=== PATIENT | male | born 1935 | race Caucasian/White ===

== ENCOUNTER 2016-12-01 10:40 | Emergency (ER) | payer SELFPAY ==
[~2016-12-01 10:40] MED LIST: ALPRAZOLAM0.5 MG PO; ASPIRIN CHEWABL81 MG PO; CHOLESTYRAMINE P4 GM PO; DILTIAZEM ER180 M1 PO; LASIX 40 MG TAB40 MG PO; LEVAQUIN500 MG PO; LOPRESSOR 25 MG25 MG PO; METOPROLOL TART25 MG PO; NORCO 5-325 TA1 EACH PO; OMEPRAZOLE40 MG PO; ZESTRIL5 MG PO
[2016-12-01 12:11] LABS: HEMOGLOBIN 13.3 gm/dl (14.0-17.5); RED BLOOD COUNT 4.5 M/UL (4.20-5.50); WHITE BLOOD COUNT 6.9 K/UL (4.5-11.0)
[2016-12-01 12:47] LABS: BUN/CREATININE RATIO 15 (0-10)
== END 2016-12-01 14:25 | disposition home or self-care (01) ==
LOC: ER1 10:40
PROVIDERS: Specialist/Technologist Athletic Trainer
DX: R60.1 Generalized edema (principal); I10 Essential (primary) hypertension; I25.10 Atherosclerotic heart disease of native coronary artery without angina pectoris; J44.9 Chronic obstructive pulmonary disease, unspecified; E78.5 Hyperlipidemia, unspecified; Z95.0 Presence of cardiac pacemaker; Z95.5 Presence of coronary angioplasty implant and graft; Z79.899 Other long term (current) drug therapy; F41.9 Anxiety disorder, unspecified
CPT/HCPCS: 36415; 71010; 80053; 82550; 82553; 83874; 83880; 84484; 85025; 93005; 99284

== ENCOUNTER 2021-03-02 13:00 | Inpatient (IN) | payer OTHER ==
[~2021-03-02] VITALS: Ht 167.6 cm; Wt 62.2 kg
[~2021-03-02 13:00] MED LIST changes: +BENADRYL 25MG C25 MG PO
[2021-03-02 13:31] LABS: HEMOGLOBIN 15.8 gm/dl (14.0-17.5); RED BLOOD COUNT 5.11 M/UL (4.20-5.50); WHITE BLOOD COUNT 3.2 K/UL (4.5-11.0)
[2021-03-02] MEDS ORDERED: ALPRAZOLAM2 MG PO (15:20)
[2021-03-03 04:22] LABS: HEMOGLOBIN 15.6 gm/dl (14.0-17.5); RED BLOOD COUNT 4.87 M/UL (4.20-5.50); WHITE BLOOD COUNT 3.1 K/UL (4.5-11.0)
[2021-03-04 07:36] LABS: HEMOGLOBIN 14.1 gm/dl (14.0-17.5); RED BLOOD COUNT 4.48 M/UL (4.20-5.50); WHITE BLOOD COUNT 3.7 K/UL (4.5-11.0)
[2021-03-04 07:58] LABS: BUN/CREATININE RATIO 40 (0-10)
--- NOTE | 2021-03-04 22:50 | NUR ---
critical NA 160, REPORTED TO DR. GOLDSTEIN WATCH FOR NEW ORDERS TO COME.
[2021-03-05 07:39] LABS: HEMOGLOBIN 13.8 gm/dl (14.0-17.5); RED BLOOD COUNT 4.6 M/UL (4.20-5.50)
[2021-03-05 07:42] LABS: WHITE BLOOD COUNT 5.1 K/UL (4.5-11.0)
[2021-03-05 08:17] LABS: BUN/CREATININE RATIO 37 (0-10)
--- NOTE | 2021-03-05 18:49 | NUR ---
1400- ATTEMPTED TO INSERT NG TUBE WITHOUT SUCCESS, X [address] NURSES[address] PATIENT [address]PLIANT[address] DR. GUPTA NOTIFIED. NO NEW ORDERS.
[2021-03-06 08:19] LABS: HEMOGLOBIN 14.1 gm/dl (14.0-17.5); RED BLOOD COUNT 4.67 M/UL (4.20-5.50); WHITE BLOOD COUNT 4.5 K/UL (4.5-11.0)
[2021-03-06 08:42] LABS: BUN/CREATININE RATIO 36 (0-10)
[2021-03-07 09:38] LABS: HEMOGLOBIN 14.7 gm/dl (14.0-17.5); RED BLOOD COUNT 4.89 M/UL (4.20-5.50); WHITE BLOOD COUNT 7.3 K/UL (4.5-11.0)
[2021-03-07 09:57] LABS: BUN/CREATININE RATIO 35 (0-10)
[2021-03-08 06:52] LABS: HEMOGLOBIN 14.7 gm/dl (14.0-17.5); RED BLOOD COUNT 4.66 M/UL (4.20-5.50)
[2021-03-08 06:55] LABS: WHITE BLOOD COUNT 10.2 K/UL (4.5-11.0)
[2021-03-08 07:40] LABS: BUN/CREATININE RATIO 31 (0-10)
[2021-03-09 04:26] LABS: BUN/CREATININE RATIO 31 (0-10)
[2021-03-09 04:31] LABS: RED BLOOD COUNT 4.23 M/UL (4.20-5.50); WHITE BLOOD COUNT 9.5 K/UL (4.5-11.0)
[2021-03-09 04:33] LABS: HEMOGLOBIN 12.7 gm/dl (14.0-17.5)
[2021-03-10 06:26] LABS: HEMOGLOBIN 14.5 gm/dl (14.0-17.5); RED BLOOD COUNT 4.61 M/UL (4.20-5.50); WHITE BLOOD COUNT 11.4 K/UL (4.5-11.0)
[2021-03-10 07:15] LABS: BUN/CREATININE RATIO 39 (0-10)
--- NOTE | 2021-03-10 16:42 | NUR ---
RECEIVED A CALL FROM YASMIN IN ICU REGARDING THE PT. SHE STATES THAT SHE AND DR. WILLS HAVE SPOKEN WITH THE STATE, THEY HAVE GIVEN GUARDIANSHIP AND CUSTODY OF CARE TO CHANDLER ROSEN, . CHANDLER ROSEN STATED TO YASMIN AND JOHANN THAT THE PT WOULD WANT TO BE DNR/DNI. BRACELET FOR DNR HAS BEEN PLACED ON THE RIGHT WRIST. INSTRUCTIONS ARE TO KEEP PT COMFORTABLE. WILL CONTINUE TO MONITOR.
[2021-03-11 11:01] LABS: HEMOGLOBIN 13.4 gm/dl (14.0-17.5); RED BLOOD COUNT 4.51 M/UL (4.20-5.50)
[2021-03-11 11:27] LABS: BUN/CREATININE RATIO 55 (0-10)
[2021-03-12 06:02] LABS: WHITE BLOOD COUNT 11.6 K/UL (4.5-11.0)
[2021-03-12 06:08] LABS: HEMOGLOBIN 15.8 gm/dl (14.0-17.5); RED BLOOD COUNT 5.01 M/UL (4.20-5.50)
[2021-03-12 06:14] LABS: BUN/CREATININE RATIO 60 (0-10)
[2021-03-12 20:46] LABS: HEMOGLOBIN 11.6 gm/dl (14.0-17.5)
--- NOTE | 2021-03-13 04:26 | NUR ---
CALLED BY TECH TO COME TO PATIENT'S ROOM. SHE STATED SHE WAS IN THE ROOM TO CHECK HIS O2 BECAUSE PATIENT WAS ATTEMPTING TO REMOVE AIRVO FROM HIS NOSE. AIRVO WAS KEPT IN PLACE. O2 SAT WAS 95% UPON ASSESSMENT. WITHIN APPROXIMATELY 3 MINUTES, THE PATIENT TOOK HIS LAST BREATH WITH NO WARNING SIGNS OR SYMPTOMS. VITAL SIGNS STABLE 30 MINUTES PRIOR. SATS 100%. PATIENT PRONOUCED DOCUMENTED IN EXPIRATION RECORD. DR. YOUNG NOTIFIED. PERSONAL CARE SERVICE PROVIDER NOTIFIED. FAMILY MEMBER NOTIFIED. HOME NOTIFIED. HILARIA NOTIFIED. SEE EXPIRATION RECORD FOR MORE INFO.
== END 2021-03-13 02:12 | disposition expired | DRG 177 ==
LOC: ER1 13:00 → M/S 14:58 → CDU 14:58 → M/S 20:30
PROVIDERS: Family Medicine; Internal Medicine; ADMIT Internal Medicine
PROC: 8E0ZXY6 Isolation (ICD-10-PCS; principal; 2021-03-02)
PROC: 3E0333Z Introduction of Anti-inflammatory into Peripheral Vein, Percutaneous Approach (ICD-10-PCS; 2021-03-02)
PROC: XW033E5 Introduction of Remdesivir Anti-infective into Peripheral Vein, Percutaneous Approach, New Technology Group 5 (ICD-10-PCS; 2021-03-02)
PROC: 5A0955A Assistance with Respiratory Ventilation, Greater than 96 Consecutive Hours, High Flow/Velocity Cannula (ICD-10-PCS; 2021-03-08)
DX: U07.1 COVID-19 (principal); J12.82 Pneumonia due to coronavirus disease 2019; J96.01 Acute respiratory failure with hypoxia; G92 Toxic encephalopathy; J69.0 Pneumonitis due to inhalation of food and vomit; N17.9 Acute kidney failure, unspecified; E87.0 Hyperosmolality and hypernatremia; Z51.5 Encounter for palliative care; E46 Unspecified protein-calorie malnutrition; Z66 Do not resuscitate; F03.90 Unspecified dementia, unspecified severity, without behavioral disturbance, psychotic disturbance, mood disturbance, and anxiety; L89.321 Pressure ulcer of left buttock, stage 1; L89.316 Pressure-induced deep tissue damage of right buttock; F28 Other psychotic disorder not due to a substance or known physiological condition; G47.00 Insomnia, unspecified; R13.10 Dysphagia, unspecified; G47.9 Sleep disorder, unspecified; I25.10 Atherosclerotic heart disease of native coronary artery without angina pectoris; E86.1 Hypovolemia; D69.6 Thrombocytopenia, unspecified; I50.9 Heart failure, unspecified; Z95.0 Presence of cardiac pacemaker; I25.2 Old myocardial infarction; Z79.01 Long term (current) use of anticoagulants; Z79.82 Long term (current) use of aspirin; Z87.440 Personal history of urinary (tract) infections; Z87.01 Personal history of pneumonia (recurrent); Z68.22 Body mass index [BMI] 22.0-22.9, adult
CPT/HCPCS: 0240U; 36415; 36600; 70450; 71045; 80053; 80202; 80307; 81001; 82140; 82550; 82553; 82803; 83036; 83605; 83735; 83874; 83880; 84100; 84295; 84484; 85014; 85018; 85025; 85027; 85379; 85610; 86140; 86850; 86900; 86901; 87040; 92526; 92610; 93005; 93880; 93970; 94640; 94664; 94760; 96374; 97110; 97110-GP-CQ; 97162; 97167; 97530-GP-CQ; 99285; C9113; G0480; J0456; J0696; J1100; J1265; J1335; J1650; J2185; J3370; J3480; J7030; J7040; J7070; Q9967